=== PATIENT | male | born 1975 | race Caucasian/White ===

== ENCOUNTER 2018-11-07 11:29 | Inpatient (IN) | payer OTHER ==
[2018-11-07] MEDS ORDERED: HEPARIN/DEXTROSE 500 ML IV ONE (14:52)
[2018-11-07] MEDS ORDERED: HEPARIN 10,000 UNIT/10 ML MDV (1,000 UNIT/ML) IVP ONE ×2 (14:52→16:02)
[2018-11-07] MEDS ORDERED: MEPERIDINE 25 MG/ML SYR IVP PRN (15:02)
[2018-11-07] MEDS ORDERED: NALOXONE HCL 0.4 MG/ML INJ IVP PRN (15:02)
[2018-11-07] MEDS ORDERED: FLUMAZENIL 0.5 MG/5 ML MDV IVP PRN (15:02)
[2018-11-07] MEDS ORDERED: HEPARIN 10,000 UNIT/10 ML MDV (1,000 UNIT/ML) IVP PRN (15:02)
[2018-11-07] MEDS ORDERED: ALTEPLASE 2 MG VIAL IVP PRN (15:02)
[2018-11-07] MEDS ORDERED: fentaNYL 100 MCG/2 ML INJ IVP PRN (15:02)
[2018-11-07] MEDS ORDERED: GLUCAGON HCL 1 MG VIAL IVP PRN (15:02)
[2018-11-07] MEDS ORDERED: PROTAMINE SULFATE 50 MG/5 ML VIAL IVP PRN (15:02)
[2018-11-07] MEDS ORDERED: MIDAZOLAM 2 MG/2 ML VIAL IVP PRN (15:02)
[2018-11-07] MEDS ORDERED: IOPAMIDOL (ISOVUE 370) 100 ML BTL IV ONE (15:05)
[2018-11-07 15:32] LABS: PLATELET COUNT 274 10^3/uL (150-400)
[2018-11-07] MEDS ORDERED: ACETAMINOPHEN 325 MG TAB PO PRN (15:32)
[2018-11-07] MEDS ORDERED: ONDANSETRON 4 MG/2 ML VIAL IVP PRN (15:32)
[2018-11-07] MEDS ORDERED: ONDANSETRON DISINTEGRATING 4 MG TAB PO PRN (15:32)
--- NOTE | 2018-11-07 15:35 | PDGENHP ---
<Liz David - Last Filed: 11/07/18 16:21> History and Physical - Chief Complaint Left calf swelling and pain - History of Present Illness This is a 43 y/o male presenting with 9 days worth of left calf swelling and pain. He had noticed the swelling last Monday but thought nothing of it because he felt he is usually mildly swollen due to his left ankle ORIF that was performed in March 2018. He lives in [place] and flew to [place] this Monday for a business trip. Yesterday, he went for a long walk and he continued to experience swelling and pain. He called his PCP in [place] who suggested he follow up in the emergency room where an ultrasound reveal a left positive deep venous thrombosis to his entire leg. Past Medical/Surgical History 1. Esophageal strictures (on Flovent, omeprazole) 2. Endoscopy (last one years ago per pt) 3. Left ankle ORIF (March 2018) Social 1. , lives in [place]. 2. Employed in [employer], desk job. 3. Lives a sedentary lifestyle. 4. Drinks 5 alcoholic beverages/week. Smokes cannabis occasionally. Cocaine use 3 weeks ago. Smokes 1/2 pack of cigarettes/day. History Information - Allergies/Home Medication List Allergies/Adverse Reactions: Fish Containing Products [fish] Allergy (Severe, Unverified 11/07/18 16:05) Anaphylaxis tree nut Allergy (Intermediate, Unverified 11/07/18 16:05) Other-Enter Comments Penicillins Allergy (Verified 11/07/18 16:06) Home Medications: Fluticasone Propionate [Flovent Hfa] 1 puffs PO DAILY 11/07/18 [Last Taken 11/07] Omeprazole 20 mg PO DAILY PRN 11/07/18 [Last Taken 11/05/18] I have personally reviewed and updated: family history, medical history, social history, surgical history Past Medical History: See HPI list - Surgical History Additional surgical history: See HPI list - Family History Positive for: non-pertinent - Social History Smoking Status: Current some day smoker Tobacco Use: Cigarettes Alcohol Use: Occasionally Drug Use: Cocaine, Marijuana Review of Systems Review of Systems: ROS: 10pt was reviewed & negative except for what was stated in HPI & below Constitutional: Reports: no symptoms EENMT: Reports: no symptoms Cardiac: Reports: no symptoms Respiratory: Reports: no symptoms Gastrointestinal: Reports: no symptoms Genitourinary: Reports: no symptoms Muscolosketal: Reports: calf pain (left) Skin: Reports: change in color (LLE) Neurological: Reports: no symptoms Hematologic/Lymphatic: Reports: no symptoms Immunologic/Allergy: Reports: other (See allergy list) Physical Exam Physical Exam: Lab data and imaging were reviewed. Ultrasound results: see HPI WBC: 12.91 BUN/Creatinine: 17/1.2 Temp Pulse Resp BP Pulse Ox 36.6 C 90 18 139/94 H 96 11/07/18 11:30 11/07/18 11:30 11/07/18 11:30 11/07/18 11:30 11/07/18 11:30 Constitutional: no apparent distress, obese Eyes: PERRL, anicteric sclera, EOMI Ears, Nose, Mouth, Throat: moist mucous membranes, hearing normal, ears appear normal, no oral mucosal ulcers Cardiovascular: regular rate and rhythym, no murmur, rub, or gallop, No edema Peripheral Pulses: 1+: dorsalis-pedis (R) (Radial 2+), dorsalis-pedis (L) ( Radial 2+) Respiratory: no respiratory distress, no rales or rhonchi, clear to auscultation Gastrointestinal: normoactive bowel sounds, soft, non-tender abdomen, no palpable masses Genitourinary: no bladder fullness, no bladder tenderness Skin: warm, erythema (LLE) Musculoskeletal: asymmetric calves (LLE), muscular tenderness Neurologic: AAOx3, sensation intact bilaterally, CN II-XII Intact Psychiatric: interacting appropriately, not encephalopathic, thought process linear, anxious Lymph, Heme, Immunologic: no cervical LAD, no supraclavicular LAD Lab Data & Imaging Review 11/07/18 15:15 11/07/18 15:15 WBC 12.94 10^3/uL (3.80-9.50) H 11/07/18 15:15 RBC 5.42 10^6/uL (4.40-6.38) 11/07/18 15:15 Hgb 16.3 g/dL (13.7-17.5) 11/07/18 15:15 Hct 48.1 % (40.0-51.0) 11/07/18 15:15 MCV 88.7 fL (81.5-99.8) 11/07/18 15:15 MCH 30.1 pg (27.9-34.1) 11/07/18 15:15 MCHC 33.9 g/dL (32.4-36.7) 11/07/18 15:15 RDW 12.4 % (11.5-15.2) 11/07/18 15:15 Plt Count 274 10^3/uL (150-400) 11/07/18 15:15 MPV 9.9 fL (8.7-11.7) 11/07/18 15:15 Neut % (Auto) 59.8 % (39.3-74.2) 11/07/18 15:15 Lymph % (Auto) 26.3 % (15.0-45.0) 11/07/18 15:15 [place] % (Auto) 7.6 % (4.5-13.0) 11/07/18 15:15 Eos % (Auto) 4.6 % (0.6-7.6) 11/07/18 15:15 Baso % (Auto) 0.9 % (0.3-1.7) 11/07/18 15:15 Nucleat RBC Rel Count 0.0 % (0.0-0.2) 11/07/18 15:15 Absolute Neuts (auto) 7.74 10^3/uL (1.70-6.50) H 11/07/18 15:15 Absolute Lymphs (auto) 3.40 10^3/uL (1.00-3.00) H 11/07/18 15:15 Absolute Monos (auto) 0.98 10^3/uL (0.30-0.80) H 11/07/18 15:15 Absolute Eos (auto) 0.60 10^3/uL (0.03-0.40) H 11/07/18 15:15 Absolute Basos (auto) 0.12 10^3/uL (0.02-0.10) H 11/07/18 15:15 Absolute Nucleated RBC 0.00 10^3/uL (0-0.01) 11/07/18 15:15 Immature Gran % 0.8 % (0.0-1.1) 11/07/18 15:15 Immature Gran # 0.10 10^3/uL (0.00-0.10) 11/07/18 15:15 Assessment & Plan Plan: 43 y/o male presenting with deep venous thrombosis of entire left leg s/p 9 days worth of LLE swelling and pain. 1. DVT: ultrasound confirmed presence in LLE. Negative for RLE. Mild leukocytosis (12.94), afebrile, do not think it is infectious. Most likely reactive cause of WBC elevation. -I spoke to Dr. Ramirez; he wants patient to receive bolus dose of heparin prior to receiving tPA. -Will receive tPA shortly -Most likely will be on heparin drip afterwards; I will touch base with Dr. Ramirez after pt receives tPA to discuss appropriate timing to initiate -Cont tele monitoring 2. Lifestyle: he has multiple factors that contributed to the DVT - obesity, smoking cigarettes, sedentary lifestyle -Educated the pt on tobacco cessation and the detrimental effects it can cause. He is aware and has attempted to stop in the past but continues to use currently. Also discussed weight loss and leading a more active lifestyle. He is aware he needs to make changes and having the DVT is "a wake up call." 3. Esophageal strictures: not burdensome. On flovent and omeprazole. Diet: Regular Code: Full Dispo: Admit to inpatient VTE ppx: Heparin drip, tPA <Andrew Mckinnon - Last Filed: 11/07/18 18:12> History and Physical - History of Present Illness Review of Systems Review of Systems: Physical Exam Physical Exam: Temp Pulse Resp BP Pulse Ox 36.7 C 85 18 140/78 H 95 11/07/18 15:32 11/07/18 17:43 11/07/18 17:43 11/07/18 17:43 11/07/18 17:43 O2 (L/minute) 1 Lab Data & Imaging Review 11/07/18 15:15 11/07/18 15:15 WBC 12.94 10^3/uL (3.80-9.50) H 11/07/18 15:15 RBC 5.42 10^6/uL (4.40-6.38) 11/07/18 15:15 Hgb 16.3 g/dL (13.7-17.5) 11/07/18 15:15 Hct 48.1 % (40.0-51.0) 11/07/18 15:15 MCV 88.7 fL (81.5-99.8) 11/07/18 15:15 MCH 30.1 pg (27.9-34.1) 11/07/18 15:15 MCHC 33.9 g/dL (32.4-36.7) 11/07/18 15:15 RDW 12.4 % (11.5-15.2) 11/07/18 15:15 Plt Count 274 10^3/uL (150-400) 11/07/18 15:15 MPV 9.9 fL (8.7-11.7) 11/07/18 15:15 Neut % (Auto) 59.8 % (39.3-74.2) 11/07/18 15:15 Lymph % (Auto) 26.3 % (15.0-45.0) 11/07/18 15:15 [place] % (Auto) 7.6 % (4.5-13.0) 11/07/18 15:15 Eos % (Auto) 4.6 % (0.6-7.6) 11/07/18 15:15 Baso % (Auto) 0.9 % (0.3-1.7) 11/07/18 15:15 Nucleat RBC Rel Count 0.0 % (0.0-0.2) 11/07/18 15:15 Absolute Neuts (auto) 7.74 10^3/uL (1.70-6.50) H 11/07/18 15:15 Absolute Lymphs (auto) 3.40 10^3/uL (1.00-3.00) H 11/07/18 15:15 Absolute Monos (auto) 0.98 10^3/uL (0.30-0.80) H 11/07/18 15:15 Absolute Eos (auto) 0.60 10^3/uL (0.03-0.40) H 11/07/18 15:15 Absolute Basos (auto) 0.12 10^3/uL (0.02-0.10) H 11/07/18 15:15 Absolute Nucleated RBC 0.00 10^3/uL (0-0.01) 11/07/18 15:15 Immature Gran % 0.8 % (0.0-1.1) 11/07/18 15:15 Immature Gran # 0.10 10^3/uL (0.00-0.10) 11/07/18 15:15 PT 14.2 SEC (12.0-15.0) 11/07/18 15:15 INR 1.08 (0.83-1.16) 11/07/18 15:15 APTT 34.9 SEC (23.0-38.0) 11/07/18 15:15 Fibrinogen 512 mg/dL (214-456) H 11/07/18 15:15 Sodium 138 mEq/L (135-145) 11/07/18 15:15 Potassium 4.2 mEq/L (3.5-5.2) 11/07/18 15:15 Chloride 103 mEq/L (97-110) 11/07/18 15:15 Carbon Dioxide 24 mEq/l (22-31) 11/07/18 15:15 Anion Gap 11 mEq/L (6-14) 11/07/18 15:15 BUN 16 mg/dL (7-23) 11/07/18 15:15 Creatinine 1.2 mg/dL (0.7-1.3) 11/07/18 15:15 Estimated GFR > 60 11/07/18 15:15 Glucose 95 mg/dL (70-100) 11/07/18 15:15 Calcium 9.6 mg/dL (8.5-10.4) 11/07/18 15:15 Assessment & Plan Plan: Patient seen and evaluated independently and care plan reviewed with MARLON David, agree with her care plan as outlined above, please see separate note for further details.
--- NOTE | 2018-11-07 15:35 | PDPROPOC ---
Sedation Plan of Care ASA Classification: ASA 2 Mallampati Score: Class 2 Mallampati Reference Image:
--- NOTE | 2018-11-07 15:54 | EDPHY ---
General Time Seen by Provider: 11/07/18 13:04 Narrative: CLINICAL IMPRESSION: Left leg DVT ASSESSMENT/PLAN: 43-year-old male with no reported significant medical history, visiting from [place] presents to the emergency department 1 week of left leg swelling. Patient had ankle surgery in March of last year, reports a normal recovery but began noticing swelling in the left leg 1 week ago. He traveled here by air 2 days ago. No reported past history of DVT or PE, he denies chest pain and shortness of breath, no reports of new trauma. He stopped smoking approximately 4 months ago. On exam, patient has an edematous, erythematous, slightly warm left leg. Distal neurovascular exam is intact. No reports of chest pain or shortness of breath. No tachycardia or hypoxia. Ultrasound confirms extensive DVT throughout the entire leg. I discussed with Dr. Chang who met with the patient and patient has decided to go to IR for lysis. Laboratory evaluation ordered, heparin initially ordered but stopped as patient went directly to IR from the emergency department. ICU bed ordered. Case discussed with hospitalist who will follow patient after procedure. DIFFERENTIAL DX: Differential includes but not limited to DVT, cellulitis, musculoskeletal swelling, lymphedema ED PROCEDURES: See lab and/or imaging results below ED COURSE: Ultrasound discussed with Radiology. Positive for extensive left leg DVT. Neurovascularly intact. Discussed with Dr. Chang who came to the ED and met with the patient to discuss options for lysis. Patient has agreed to move forward with this. He was sent to the IR suite from the emergency department CHIEF COMPLAINT: Atraumatic left leg swelling HPI: A 43-year-old otherwise healthy male presents to the emergency department with 1 week of left leg swelling. Patient traveled here from [facility] 2 days ago for work. He reports ankle surgery on this leg in March. No other recent history of surgery or trauma. He has no history of DVT or PE. He denies chest pain or shortness of breath. No family history of DVT PE or coagulopathy. He reports no fever, chills, numbness or loss of sensation. PAST MEDICAL HISTORY: None reported See nurse/triage notes for additional history if applicable Pertinent Past Surgical History: Surgery to left ankle in March of 2018 Family History: No family history of DVT, PE or coagulopathy Social History: Smoking history, quit 4 months ago, visiting from [place] REVIEW OF SYSTEMS: All other systems negative Constitutional: No fever, no chills, appetite change. Cardiovascular: No chest pain, no palpitations. Respiratory: No cough, no shortness of breath. Gastrointestinal: No abdominal pain, no vomiting, diarrhea. Musculoskeletal: No back pain, positive for joint swelling, joint pain, myalgias. Skin: No rashes, positive for color change. Neurological: No headache, dizziness, weakness. PHYSICAL EXAM: General Appearance: Alert, oriented, appropriate, cooperative, NAD, well hydrated, non-toxic appearing, no tachycardia, no hypoxia. Respiratory: There are no retractions, lungs are clear to auscultation. Cardiac: Regular rate and rhythm, no murmurs or gallops. Gastrointestinal: Abdomen is soft, nontender, bowel sounds normal, no masses/ hernia, no rigidity, guarding or focal peritoneal findings. Neurological: [ Alert and oriented x 3, CN 2-12 grossly intact Skin: Mild erythema noted to left leg. No cellulitic changes. No open wound. Musculoskeletal: Asymmetric swelling to entire left leg, predominantly to the calf and ankle. Distal neurovascular exam intact. Pain with Colon test on the left. Intact proximal femoral pulses. Full range of motion of both legs.] Psychiatric: Patient is oriented X 3, there is no agitation. MEDICAL DECISION MAKING: Patient was seen independently. Secondary supervising physician at time of evaluation was Dr. Garrett. Diagnosis: Left leg DVT. New, requires workup Summary: See Assessment and Plan for summary of ED visit Clinical lab tests: ordered / reviewed. Independent visualization of images, tracing, or specimens: Yes. Discussed patient with another provider: Dr. Garrett, Dr. Chang, hospitalist Patient Progress: Stable. - History Smoking Status: Former smoker - Objective Vital Signs: Initial Vital Signs Temperature (C) 36.6 C 11/07/18 11:30 Heart Rate 90 11/07/18 11:30 Respiratory Rate 18 11/07/18 11:30 Blood Pressure 139/94 H 11/07/18 11:30 O2 Sat (%) 96 11/07/18 11:30 O2 Delivery Mode Room Air O2 (L/minute) 1 Allergies/Adverse Reactions: Fish Containing Products [fish] Allergy (Severe, Unverified 11/07/18 16:05) Anaphylaxis tree nut Allergy (Intermediate, Unverified 11/07/18 16:05) Other-Enter Comments Penicillins Allergy (Verified 11/07/18 16:06) Home Medications: Medication Instructions Recorded Fluticasone Propionate [Flovent 1 puffs PO DAILY 11/07/18 Hfa] Omeprazole 20 mg PO DAILY PRN 11/07/18 Laboratory Results: Laboratory Results 11/07/18 15:15 11/07/18 15:15 Medications Given: Alteplase, Recombinant 5 mg/ (Sodium Chloride) 100 mls @ 0 mls/hr IV CONT JOAQUIM; Per Protocol PRN Reason: Protocol Stop: 05/06/19 16:59 Last Admin: 11/08/18 03:12 Dose: 100 mls Heparin Sodium (Porcine) (Heparin Flush 2,000 Unit/Ns 1,000 Ml) 1,000 mls @ 20 mls/hr IV CONT JOAQUIM Stop: 05/07/19 05:59 Last Admin: 11/08/18 06:17 Dose: 1,000 mls Discontinued Medications Heparin Sodium (Porcine) (Heparin Injection) 0 unit IVP EDNOW ONE Stop: 11/07/18 14:53 Last Admin: 11/07/18 15:43 Dose: Not Given Heparin Sodium (Porcine) (Heparin Injection) 5,000 unit IVP EDNOW ONE Stop: 11/07/18 16:03 Last Admin: 11/07/18 16:33 Dose: 5,000 ml Heparin Sodium (Porcine) (Heparin 50 Units/Ml (Premix)) 500 mls @ 0 mls/hr IV EDNOW ONE; Per Protocol PRN Reason: Protocol Stop: 11/07/18 14:53 Last Admin: 11/07/18 15:43 Dose: Not Given Alteplase, Recombinant 5 mg/ (Sodium Chloride) 100 mls @ 0 mls/hr IV ONCALL ONE ; As Directed PRN Reason: Protocol Stop: 11/07/18 16:46 Last Admin: 11/07/18 18:19 Dose: Not Given Departure - Departure Disposition: [facility] Acute Condition: Fair
[2018-11-07 16:00] LABS: INR 1.08 (0.83-1.16); PROTIME(PATIENT) 14.2 SEC (12.0-15.0)
[2018-11-07] MEDS ORDERED: MIDAZOLAM 2 MG/2 ML VIAL ONE (16:26)
[2018-11-07] MEDS ORDERED: NALOXONE HCL 0.4 MG/ML INJ ONE (16:26)
[2018-11-07] MEDS ORDERED: FLUMAZENIL 0.5 MG/5 ML MDV IVP ONE (16:27)
[2018-11-07] MEDS ORDERED: fentaNYL 100 MCG/2 ML INJ ONE (16:27)
[2018-11-07] MEDS ORDERED: ALTEPLASE 5 MG in NS 100 ML IV ONE (16:45)
[2018-11-07] MEDS ORDERED: PROMETHAZINE HCL 25 MG/ML INJ IVP PRN (16:58)
[2018-11-07] MEDS ORDERED: LORazepam 1 MG TAB PO PRN (16:58)
[2018-11-07] MEDS ORDERED: HEPARIN/DEXTROSE 500 ML IV SCH (17:00)
--- NOTE | 2018-11-07 17:20 | PDRADPN ---
Radiology Procedure Note Date of Procedure: 11/07/18 Radiologist: Bernardo Ramirez Anesthesia: IV Sedation Pre-op Diagnosis: LLE DVT Post-op Diagnosis: Same Procedure: Day 1 lysis Finding(s): nearly occlusive thrombus spanning fempop Inf/Abcess present in the surg proc area at time of surgery?: No
--- NOTE | 2018-11-07 18:13 | HOSPPROG ---
Hospitalist Progress Note Assessment/Plan: 43 yo M from [place] of town w/PMH of obesity, ankle surgery presenting w/ c/o 9 days of LLE swelling found to have extensive LLE dvt # LLE DVT: US personally reviewed and notable for occlusive DVT involving the entire left leg, IR consulted by ER and patient undergoing TPA clot lysis given such extensive clot burden and concerns for poor outcome without it. Patient has no real pain and pulses are present bit leg is noted to be tense. Risk factor for clot development is sedentary lifestyle, no other known RF. Will need to f/u after dc for consideration of hypercoagulable w/u. # obesity: recommend lifestyle change # IP status, high risk medications requiring ICU monitoring and likely > 48 hours stay Patient new to my care. Old records reviewed and summarized as above. Care plan reviewed with ER doctor as well as MARLON David, please see her H&P for further details. Objective: Vital Signs Temp Pulse Resp BP Pulse Ox 36.7 C 85 18 140/78 H 95 11/07/18 15:32 11/07/18 17:43 11/07/18 17:43 11/07/18 17:43 11/07/18 17:43 Laboratory Results 11/07/18 15:15 11/07/18 15:15 PT 14.2 SEC (12.0-15.0) 11/07/18 15:15 INR 1.08 (0.83-1.16) 11/07/18 15:15 ICD10 Worksheet Patient Problems: Problems Problem Status Onset DVT (deep venous thrombosis) Acute - ICD10 Problem Qualifiers (1) DVT (deep venous thrombosis) Qualifiers: DVT location: lower extremity Chronicity: acute Laterality: left
[2018-11-07] MEDS: ALTEPLASE 5 MG in NS 100 ML IV SCH (21:52)
[2018-11-08] MEDS: ALTEPLASE 5 MG in NS 100 ML IV SCH (03:12)
[2018-11-08 05:03] LABS: PLATELET COUNT 168 10^3/uL (150-400)
[2018-11-08] MEDS ORDERED: PANTOPRAZOLE SODIUM 40 MG TAB PO PRN (09:00)
[2018-11-08] MEDS ORDERED: FLUTICASONE HFA 220 MCG MDI IH SCH (09:00)
--- NOTE | 2018-11-08 09:15 | PDMN ---
Medical Necessity Medical necessity: Pt meets inpt criteria per MD order and MCG M-350, Deep Venous Thrombosis of Lower Extremities, A-4 days. 43 y/o admitted w/extensive LLE DVT requiring tPA thrombolysis , ICU monitoring, high risk comorbidities include obesity/sedentary lifestyle, anticipate>48 hrs for ongoing eval/ management of above.
--- NOTE | 2018-11-08 12:01 | HOSPPROG ---
Hospitalist Progress Note Assessment/Plan: 43 yo [place] town w/PMH of obesity, ankle surgery presenting w/ c/o 9 days of LLE swelling found to have extensive LLE dvt # LLE DVT: -US c/w occlusive DVT involving the left Femoral, popliteal, and posterior tibial veins. no involvement of the Iliac or IVC -IR consulted and patient undergoing TPA clot lysis given such extensive clot burden and concerns for poor outcome without it. -Will need to f/u after dc for consideration of hypercoagulable w/u. -Heparin Drip -Will go back to IR today, await rec's # obesity: recommend lifestyle change # Likely JOSSE, will need op f/u # IP status, high risk medications requiring ICU monitoring and likely > 48 hours stay Subjective: tolerating lysis well. no leg pain. no e/o bleeding Objective: Vital Signs Temp Pulse Resp BP Pulse Ox 37.0 C 86 21 H 129/74 H 95 11/08/18 08:26 11/08/18 10:00 11/08/18 10:00 11/08/18 10:00 11/08/18 10:00 Laboratory Results 11/08/18 04:30 11/07/18 11/08/18 11/09/18 05:59 05:59 05:59 Intake Total 373.5 Balance 373.5 PT 14.2 SEC (12.0-15.0) 11/07/18 15:15 INR 1.08 (0.83-1.16) 11/07/18 15:15 - Physical Exam Constitutional: no apparent distress Eyes: PERRL Ears, Nose, Mouth, Throat: moist mucous membranes, hearing normal Cardiovascular: regular rate and rhythym, No edema Respiratory: no respiratory distress, no rales or rhonchi Gastrointestinal: normoactive bowel sounds, soft, non-tender abdomen Skin: warm Neurologic: AAOx3 Psychiatric: interacting appropriately, not anxious, not encephalopathic Lymph, Heme, Immunologic: No petechiae ICD10 Worksheet Patient Problems: Problems Problem Status Onset DVT (deep venous thrombosis) Acute
[2018-11-08] MEDS ORDERED: fentaNYL 100 MCG/2 ML INJ ONE (14:21)
[2018-11-08] MEDS ORDERED: NALOXONE HCL 0.4 MG/ML INJ ONE (14:21)
[2018-11-08] MEDS ORDERED: FLUMAZENIL 0.5 MG/5 ML MDV IVP ONE (14:21)
[2018-11-08] MEDS ORDERED: MIDAZOLAM 2 MG/2 ML VIAL ONE (14:21)
[2018-11-08] MEDS ORDERED: HEPARIN 10,000 UNIT/10 ML MDV (1,000 UNIT/ML) ONE (14:36)
--- NOTE | 2018-11-08 15:15 | PDRADPN ---
Radiology Procedure Note Date of Procedure: 11/08/18 Radiologist: Loretta Kilgore Anesthesia: IV Sedation Pre-op Diagnosis: LLE DVT Post-op Diagnosis: SAME Indication: FOLLOW UP TPA Procedure: VENOGRAM WITH MECHANICAL THROMBECTOMY AND ANGIOPLATY Finding(s): NEAR COMPLETE CLOT RESOLUTION FROM KNEE UP. POOR INFLOW DUE TO CLOTTED CALF VEINS. Inf/Abcess present in the surg proc area at time of surgery?: No
[2018-11-08] MEDS ORDERED: NALOXONE HCL 0.4 MG/ML INJ IVP PRN (15:19)
[2018-11-08] MEDS ORDERED: FLUMAZENIL 0.5 MG/5 ML MDV IVP PRN (15:19)
[2018-11-08] MEDS ORDERED: fentaNYL 100 MCG/2 ML INJ IVP PRN (15:19)
[2018-11-08] MEDS ORDERED: MIDAZOLAM 2 MG/2 ML VIAL IVP PRN (15:19)
[2018-11-08] MEDS ORDERED: MEPERIDINE 25 MG/ML SYR IVP PRN (15:19)
[2018-11-08] MEDS ORDERED: LIDOCAINE 1% 300 MG/30 ML SDV ONE (15:22)
[2018-11-08] MEDS ORDERED: IOPAMIDOL (ISOVUE 370) 100 ML BTL IV ONE (15:22)
[2018-11-08] MEDS ORDERED: NS 1,000 ML IV SCH (15:30)
[2018-11-08] MEDS: RIVAROXABAN 15 MG TAB PO SCH (17:50)
[2018-11-09 00:15] LABS: PLATELET COUNT 173 10^3/uL (150-400)
[2018-11-09 08:04] VITALS: BP 132/85
[2018-11-09] MEDS: RIVAROXABAN 15 MG TAB PO SCH (08:08)
--- NOTE | 2018-11-09 11:45 | PDDCSUM ---
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 IR was consulted. He had TPA clot lysis and this was successful. Repeat venogram showed near complete resolution of the clot. There is no e/o of May Arredondo Syndrome. He has been changed from Heparin to Xarelto. He has been provided the starter pack (Xarelto 21mg BID x 3 weeks) and at that time he should be changed to 20mg PO Daily. He will f/u with his PCP on Monday and this can be coordinated. Hypercoagulable testing was not performed. Recommend Tobacco cessation. DDX # LLE DVT: # obesity: recommend lifestyle change # Likely JOSSE, will need op f/u Exam: NAD AAOX3 RRR CTA B S/NT/ND MEDS: SEE MED REC TOTAL TIME SPENT ON D/C IS 40 MINS
== END 2018-11-09 12:10 | disposition home or self-care (01) | DRG 272 ==
LOC: F2N 17:40 → OBSVTOIN 18:18
PROVIDERS: ADMIT Internal Medicine; ATTEND Internal Medicine
PROC: 3E05317 Introduction of Other Thrombolytic into Peripheral Artery, Percutaneous Approach (ICD-10-PCS; 2018-11-07)
PROC: 06CN3ZZ Extirpation of Matter from Left Femoral Vein, Percutaneous Approach (ICD-10-PCS; principal; 2018-11-08)
DX: I82.412 Acute embolism and thrombosis of left femoral vein (principal); G47.33 Obstructive sleep apnea (adult) (pediatric); E66.9 Obesity, unspecified; Z68.37 Body mass index [BMI] 37.0-37.9, adult
CPT/HCPCS: C1725; C1757; C1769; C1894; J1644; J2250; J2310; J2997; J3010; Q9967